=== PATIENT | male | born 1940 | race Caucasian/White ===

== ENCOUNTER 2017-03-09 22:24 | Emergency (ER) | payer OTHER, BC ==
[2017-03-09 22:36] VITALS: BP 137/80; PULSE 73; TEMP 98.3; BMI 26.5
[2017-03-09 23:58] LABS: BASOPHIL 0.4 % (0-2.0); EOSINOPHIL 1.8 % (0-4.5); MCH 31.5 pg (25.7-33.7); MCHC 33.2 g/dl (32.0-35.9); MEAN CELL VOLUME 94.7 fl (80-96); MEAN PLT VOLUME 8.5 fl (7.5-11.1); NEUTROPHILS 63.6 % (42.8-82.8); PLATELET COUNT 156 K/MM3 (134-434); RDW 12.7 % (11.9-15.9); WHITE BLOOD COUNT 5.8 K/mm3 (4.0-10.0)
[2017-03-10 00:11] LABS: INR 1.9 (0.82-1.09); PROTHROMBIN TIME (PATIENT) 21.2 SEC (9.98-11.88)
[2017-03-10 00:31] LABS: ALBUMIN 3.4 g/dl (3.4-5.0); ANION GAP 8 (8-16); CALCIUM 8.4 mg/dL (8.5-10.1); CO2 28 mmol/L (21-32); CREATININE 1.3 mg/dL (0.7-1.3); GLUCOSE,RANDOM 113 mg/dL (74-106); SGOT/AST 20 U/L (15-37); SGPT/ALT 27 U/L (12-78)
[2017-03-10 00:33] LABS: ALK PHOS 65 U/L (45-117); BILIRUBIN,TOTAL 0.4 mg/dL (0.2-1.0); TOT PROT 6.3 g/dl (6.4-8.2)
--- NOTE | 2017-03-10 01:37 | PDOC ---
*Physical Exam - Vital Signs Last Vital Signs Temp Pulse Resp BP Pulse Ox 98.3 F 73 18 137/80 98 03/09/17 22:35 03/09/17 22:35 03/09/17 22:35 03/09/17 22:35 03/09/17 22:35 - Physical Exam Comments: 03/10/17 01:37 The patient was examined by YI Conde under my direct supervision. I personally evaluated the patient. I concur with the above findings and the plan of care. ED Treatment Course - LABORATORY CBC & Chemistry Diagram: 03/09/17 23:49 03/09/17 23:49 - ADDITIONAL ORDERS Additional order review: Laboratory Results 03/09/17 03/09/17 03/09/17 23:49 23:49 23:49 INR 1.90 H Sodium 142 Potassium 4.1 Chloride 106 Carbon Dioxide 28 Anion Gap 8 BUN 41 H D Creatinine 1.3 D Creat Clearance w eGFR 53.82 Random Glucose 113 H Calcium 8.4 L Total Bilirubin 0.4 AST 20 D ALT 27 D Alkaline Phosphatase 65 Total Protein 6.3 L Albumin 3.4 Blood Type B NEGATIVE Antibody Screen Negative 03/09/17 23:49 RBC 3.98 L MCV 94.7 MCHC 33.2 RDW 12.7 MPV 8.5 Neutrophils % 63.6 Lymphocytes % 25.6 D Monocytes % 8.6 Eosinophils % 1.8 Basophils % 0.4 *DC/Admit/Observation/Transfer Diagnosis at time of Disposition: Epistaxis - Discharge Dispostion Disposition: HOME - Referrals Referrals: Chano Armstrong [Primary Care Provider] - Miguel Angel Cash MD [Staff Physician] - - Patient Instructions Printed Discharge Instructions: DI for Nosebleed Additional Instructions: Please follow up with ENT tomorrow as discussed. Also, you need to follow up with Dr. Armstrong to discuss your INR levels on Coumadin. If you start bleeding again, develop palpitations, dizziness, chest pain, or any new or worsening symptoms, please return to the ER.
--- NOTE | 2017-03-10 02:45 | PDOC ---
History of Present Illness - General Chief Complaint: Nasal Bleeding Stated Complaint: NOSE BLEEDING Time Seen by Provider: 03/09/17 22:55 - History of Present Illness Initial Comments: 03/10/17 02:42 CHIEF COMPLAINT: nosebleed HISTORY OF PRESENT ILLNESS: 76 yo M with hx of afib (on coumadin) presents to ED with epistaxis x 3 hours. No recent travel or sick contacts. PAST MEDICAL HISTORY: Denies past medical history FAMILY HISTORY: Denies SOCIAL HISTORY: Denies tobacco, alcohol, illicit drug use. SURGICAL HISTORY: Denies ALLERGIES: No known drug allergies REVIEW OF SYSTEMS General/Constitutional: Denies fever or chills. Denies weakness, weight change. HEENT: Nosebleed since 9 pm. Denies change in vision. Denies ear pain or discharge. Denies sore throat. Cardiovascular: Denies chest pain or shortness of breath. Respiratory: Denies cough, wheezing, or hemoptysis. Gastrointestinal: Denies nausea, vomiting, diarrhea or constipation. Denies rectal bleeding. Genitourinary: Denies dysuria, frequency, or change in urination. Musculoskeletal: Denies joint or muscle swelling or pain. Denies neck or back pain. Skin and breasts: Denies rash or easy bruising. PHYSICAL EXAM General Appearance: Well-appearing, appropriately dressed. No apparent distress , no intoxication. HEENT: Epistaxis of L nare. EOMI, PERRLA, normal ENT inspection, normal voice, TMs normal, pharynx normal. No conjunctival pallor. No photophobia, scleral icterus. Neck: Supple. Trachea midline. No tenderness, rigidity, carotid bruit, stridor , lymphadenopathy, or thyromegaly. Respiratory/Chest: Lungs CTAB. No shortness of breath, chest tenderness, respiratory distress, accessory muscle use. No crackles, rales, rhonchi, stridor , wheezing, dullness Cardiovascular: RRR. S1, S2. No JVD, murmur, bradycardia, tachycardia. Vascular Pulses: Dorsalis-Pedis (R): 2+, Dorsalis-Pedis (L): 2+ Gastrointestinal/Abdominal: Normal bowel sounds. Abdomen soft, non-distended. No tenderness or rebound tenderness. No organomegaly, pulsatile mass, guarding , hernia, hepatomegaly, splenomegaly. Lymphatic: No adenopathy, tenderness. Musculoskeletal/Extremities: Normal inspection. FROM of all extremities, normal capillary refill. Pelvis Stable. No CVA tenderness. No tenderness to extremities, pedal edema, swelling, erythema or deformity. Integumentary: Appropriate color, dry, warm. No cyanosis, erythema, jaundice or rash Neurologic: collar fuser II-XII intact. Fully oriented, alert. Appropriate mood/affect. Motor strength 5/5. No appreciable EOM palsy, facial droop or sensory deficit. Past History - Past Medical History Allergies/Adverse Reactions: Allergies Allergy/AdvReac Type Severity Reaction Status Date / Time No Known Drug Allergies Allergy Verified 10/28/15 12:48 Home Medications: Ambulatory Orders Atorvastatin Ca [Lipitor] 20 mg PO HS 10/30/13 Levothyroxine [Synthroid -] 125 mcg PO DAILY 10/30/13 Metoprolol Succinate [Toprol Xl] 50 mg PO DAILY 10/28/15 Warfarin Na [Coumadin -] 5 mg GT DAILY #30 tablet 10/31/15 Losartan/Hydrochlorothiazide [Losartan-Hctz 100-12.5 mg Tab] 1 each PO DAILY Rasagiline Mesylate [Azilect] 1 mg PO ASDIR 03/09/17 Anemia: No Asthma: No Cancer: Yes (colon ca/colostomy (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)) Cardiac Disorders: Yes (AFIB - ON COUMADIN) CVA: No COPD: No CHF: No Dementia: No Diabetes: No GI Disorders: No Disorders: Yes (KIDNEY STONES) HTN: Yes Hypercholesterolemia: Yes (BORDERLINE) Liver Disease: No Seizures: No Thyroid Disease: Yes - Surgical History Abdominal Surgery: (COLON CA/COLOSTOMY REVERSED) Appendectomy: No Cardiac Surgery: No Cholecystectomy: No GI Surgery: Yes (colostomy reversal 07/2015) Lung Surgery: No Neurologic Surgery: No Orthopedic Surgery: No - Psycho/Social/Smoking Cessation Hx Suicidal Ideation: No Smoking History: Never smoked Have you smoked in the past 12 months: No Hx Alcohol Use: No Drug/Substance Use Hx: No Substance Use Type: None Hx Substance Use Treatment: No *Physical Exam - Vital Signs Last Vital Signs Temp Pulse Resp BP Pulse Ox 98.3 F 73 18 137/80 98 03/09/17 22:35 03/09/17 22:35 03/09/17 22:35 03/09/17 22:35 03/09/17 22:35 ED Treatment Course - LABORATORY CBC & Chemistry Diagram: 03/09/17 23:49 03/09/17 23:49 - ADDITIONAL ORDERS Additional order review: Laboratory Results 03/09/17 03/09/17 03/09/17 23:49 23:49 23:49 INR 1.90 H Sodium 142 Potassium 4.1 Chloride 106 Carbon Dioxide 28 Anion Gap 8 BUN 41 H D Creatinine 1.3 D Creat Clearance w eGFR 53.82 Random Glucose 113 H Calcium 8.4 L Total Bilirubin 0.4 AST 20 D ALT 27 D Alkaline Phosphatase 65 Total Protein 6.3 L Albumin 3.4 Blood Type B NEGATIVE Antibody Screen Negative 03/09/17 23:49 RBC 3.98 L MCV 94.7 MCHC 33.2 RDW 12.7 MPV 8.5 Neutrophils % 63.6 Lymphocytes % 25.6 D Monocytes % 8.6 Eosinophils % 1.8 Basophils % 0.4 Medical Decision Making - Medical Decision Making 03/11/17 06:13 6 yo M with hx of afib (on coumadin) presents to ED with epistaxis x 3 hours. -CBC, CMP, PT/INR, T&S -EKG, CXR Labs unremarkable. Attempt to pack nares unsuccessful, appropriate sized rhinorocket unavailable. However, after initial packing attempt, epistaxis resolved. Patient to be admitted for observation and ENT consult in am. Patient and refuse observation admission due to concerns of insurance payments. Advised patient of signs and symptoms for return to ER; patient and verbalized understanding and agree to plan. *DC/Admit/Observation/Transfer Diagnosis at time of Disposition: Epistaxis - Discharge Dispostion Disposition: HOME Admit: No - Referrals Referrals: Chano Armstrong [Primary Care Provider] - Miguel Angel Cash MD [Staff Physician] - - Patient Instructions Printed Discharge Instructions: DI for Nosebleed Additional Instructions: Please follow up with ENT tomorrow as discussed. Also, you need to follow up with Dr. Armstrong to discuss your INR levels on Coumadin. If you start bleeding again, develop palpitations, dizziness, chest pain, or any new or worsening symptoms, please return to the ER.
== END 2017-03-10 02:50 | disposition home or self-care (01) ==
LOC: JER 22:24
DX: R04.0 Epistaxis (principal); Z85.038 Personal history of other malignant neoplasm of large intestine; Z87.442 Personal history of urinary calculi; I10 Essential (primary) hypertension
CPT/HCPCS: 36415; 80053; 85025; 85610; 86850; 86900; 86901; 99282-25

== ENCOUNTER 2020-05-20 05:01 | Day surgery (SDC) | payer OTHER, BC ==
[2020-05-19 15:41] VITALS: BMI 26.2
--- OUTSIDE RECORDS SUMMARY | 2020-05-20 05:05 | XMS ---
:1940 Author Organization [facility] Support Name Relationship Address Phone RE, RETIRED Unavailable Unavailable Unavailable RE Unavailable Unavailable Unavailable GRETA DOMINIQUE [address] [facility] [place] [address] Re-disclosure Warning The records that you are about to access may contain information from federally- assisted alcohol or drug abuse programs. If such information is present, then the following federally mandated warning applies: This information has been disclosed to you from records protected by federal confidentiality rules (42 CFR part 2). The federal rules prohibit you from making any further disclosure of this information unless further disclosure is expressly permitted by the written consent of the person to whom it pertains or as otherwise permitted by 42 CFR part 2. A general authorization for the release of medical or other information is NOT sufficient for this purpose. The Federal rules restrict any use of the information to criminally investigate or prosecute any alcohol or drug abuse patient.The records that you are about to access may contain highly sensitive health information, the redisclosure of which is protected by Article 27-F of the [facility] Public Health law. If you continue you may haveaccess to information: Regarding HIV / AIDS; Provided by facilities licensed or operated by the [facility] Office of Mental Health; or Provided by the [facility] Office for People With Developmental Disabilities. If such information is present, then the following [facility] mandated warning applies: This information has been disclosed to you from confidential records which are protected by state law. State law prohibits you from making any further disclosure of this information without the specific written consent of the person to whom it pertains, or as otherwise permitted by law. Any unauthorized further disclosure in violation of state law may result in a fine or long term sentence or both. A general authorization for the release of medical or other information is NOT sufficient authorization for further disclosure. Insurance Providers Payer name Policy type Policy ID Covered Covered republican's Policy P praveen / Coverage republican ID relationship to [employer] Inf ormation type villavicencio BC PPO [id number] [place] [id number] MEDICARE [id number] SP [id number] Results ID Date Data Source [id number] 05/15/2020 12:30:00 PM EDT [facility] Name Value Range Interpretation Description Data Sup porting Code Source(s) Document(s ) SARS [facility] coronavirus 2 RNA This lab was ordered by [facility] and reported by [facility]. Procedure
[2020-05-20 10:04] VITALS: TEMP 98
[2020-05-20 11:16] VITALS: BP 152/74; PULSE 84
== END 2020-05-20 11:05 | disposition home or self-care (01) ==
LOC: JASU-ENDO 05:01
PROVIDERS: ATTEND Internal Medicine Gastroenterology
PROC: 0DJD8ZZ Inspection of Lower Intestinal Tract, Via Natural or Artificial Opening Endoscopic (ICD-10-PCS; principal; 2020-05-20 10:00)
DX: Z86.010 Personal history of colon polyps (principal); Z98.0 Intestinal bypass and anastomosis status; I10 Essential (primary) hypertension; E78.5 Hyperlipidemia, unspecified; E03.9 Hypothyroidism, unspecified; I48.91 Unspecified atrial fibrillation; G20 Parkinson's disease